=== PATIENT | male | born 1980 | race Caucasian/White ===

== ENCOUNTER 2017-03-26 18:03 | Emergency (ER) | payer OTHER ==
--- NOTE | 2017-03-30 09:32 | ER ---
ADMIT: 03/26/2017 RM/LOC: ER [facility] MR#: [id number] [facility] [place], [place] [id number] LAURO DAY [address] [place] [address] Emergency Room Report SEX: M AGE: 36 : 1980 DATE: 03/26/2017 ADDENDUM: This patient comes to the ER because he states he is having pain with urination and some drainage from his penis. On physical exam, he is an uncircumcised male and he has a thick frothy drainage coming from his meatus. I did do a wet mount and GC. He was treated with a gram of Rocephin and a gram of Zithromax. He is to make sure to not have unprotected sex, and he is to follow up with his primary physician in the next few days if the symptoms are not clearing up. Please see my T-sheet. VIC Chirinos / Luis Blanco MD / valdo JOB #: [id number] CC: Tutu Bains MD, Attending Physician Di Nicholson MD, Family Physician
== END 2017-03-26 22:50 | disposition home or self-care (01) ==
LOC: ER 18:03
DX: N34.2 Other urethritis (principal); F17.200 Nicotine dependence, unspecified, uncomplicated